=== PATIENT | female | born 1965 | race Caucasian/White ===

== ENCOUNTER → 2017-10-24 | Outpatient (CLI) | payer OTHER ==
--- NOTE | 2017-10-24 09:06 | MR ---
EXAMINATION TYPE: MR brain wo/w con DATE OF EXAM: 10/24/2017 COMPARISON: NONE HISTORY: Headache CONTRAST: Performed utilizing 6 mL intravenous Gadavist gadolinium contrast. TECHNIQUE: Multiplanar, multiecho imaging on a 3.0 Helen magnet is performed through the brain. Stud y is performed within 24 hours of arrival to the hospital. The craniovertebral junction is normal. The pituitary is normal. Diffusion-weighted imaging is performed. No abnormal hyperintensity is present to suggest an acute i ntracranial infarct or acute ischemic change. There is a punctate subcortical white matter change in the right occipital lobe. Periventricular whit e matter hyperintensity is present on the inversion recovery weighted sequences in the left centrum s emiovale. This measures 1.1 x 1.1 cm in size. Punctate hyperintensities within the right centrum semi ovale. Following the intravenous administration of contrast, no abnormal enhancement is evident. Ventricles and sulci are appropriate for the patient age. IMPRESSIONS: 1. Chronic appearing white matter changes not out of proportion to the patient's age. A larger focal area of gliosis is within the left centrum semiovale posteriorly measuring 1.1 cm in diameter and trudy ears chronic.
== END | disposition home or self-care (01) ==
LOC: RADMRIMAIN 07:02
PROVIDERS: ATTEND Psychiatry & Neurology Neurology
DX: R90.89 Other abnormal findings on diagnostic imaging of central nervous system (principal); G93.89 Other specified disorders of brain
CPT/HCPCS: 70553; A9581